=== PATIENT | female | born 1970 | race African-American/Black ===

== ENCOUNTER 2019-08-06 14:24 | Emergency (ER) | payer SELFPAY ==
[~2019-08-06] VITALS: Ht 170.2 cm; Wt 102.2 kg
[2019-08-06 14:42] VITALS: BP 164/95
--- NOTE | 2019-08-06 15:56 | RAD ---
CHEST PA LATERAL History: Fever, cough for a week Comparison: None. Findings: 2 views of the chest are submitted. There is no infiltrate, pneumothorax, or effusion. Pericardial cardiac silhouette is within normal limits in size. There is evidence of old granulomatous disease. Impression: 1. No significant infiltrate is identified by radiograph. Electronically signed by: Dario Bernard MD (08/06/2019 3:54 PM) [id number]
[2019-08-06] MEDS ORDERED: ALBU2.5V8 IH (16:19)
[2019-08-06] MEDS ORDERED: BENZ100C PO (16:19)
[2019-08-06] MEDS ORDERED: PRED50TA PO (16:19)
--- NOTE | 2019-08-06 16:19 | PHYS DOC ---
Past Medical History Past Medical History: No Pertinent History Past Surgical History: No Surgical History Alcohol Use: None Adult General Chief Complaint Chief Complaint: FLU SYMPTOM HPI HPI Patient is a 49 year old female who presents to the ED today complaining of a productive cough, sore throat and nasal congestion for week. Review of Systems Review of Systems Constitutional: Denies fever or chills [] Eyes: Denies change in visual acuity, redness, or eye pain [] HENT: Reports nasal congestion and sore throat [] Respiratory: Reports cough, denies shortness of breath [] Cardiovascular: No additional information not addressed in HPI [] GI: Denies abdominal pain, nausea, vomiting, bloody stools or diarrhea [] : Denies dysuria or hematuria [] Musculoskeletal: Denies back pain or joint pain [] Integument: Denies rash or skin lesions [] Neurologic: Denies headache, focal weakness or sensory changes [] All other systems were reviewed and found to be within normal limits, except as documented in this note. Allergies Allergies Allergies Coded Allergies Type Severity Reaction Last Updated Verified No Known Drug Allergies 08/06/19 No Physical Exam Physical Exam Constitutional: Well developed, well nourished, no acute distress, non-toxic appearance. [] HENT: Normocephalic, atraumatic, bilateral external ears normal, oropharynx moist, no oral exudates, nose normal. [] Eyes: PERRLA, EOMI, conjunctiva normal, no discharge. [] Neck: Normal range of motion, no tenderness, supple, no stridor. [] Cardiovascular:Heart rate regular rhythm, no murmur [] Lungs & Thorax: Bilateral breath sounds clear to auscultation [] Abdomen: Bowel sounds normal, soft, no tenderness, no masses, no pulsatile masses. [] Skin: Warm, dry, no erythema, no rash. [] Back: No tenderness, no CVA tenderness. [] Extremities: No tenderness, no cyanosis, no clubbing, ROM intact, no edema. [] Neurologic: Alert and oriented X 3, normal motor function, normal sensory function, no focal deficits noted. [] Psychologic: Affect normal, judgement normal, mood normal. [] Current Patient Data Vital Signs Vital Signs Date Time Temp Pulse Resp B/P (MAP) Pulse Ox O2 Delivery O2 Flow Rate FiO2 08/06/19 14:42 97.8 94 16 164/95 (118) 94 Room Air 97.8 EKG EKG [] Radiology/Procedures Radiology/Procedures []PROCEDURE: CHEST PA & LATERAL CHEST PA LATERAL History: Fever, cough for a week Comparison: None. Findings: 2 views of the chest are submitted. There is no infiltrate, pneumothorax, or effusion. Pericardial cardiac silhouette is within normal limits in size. There is evidence of old granulomatous disease. Impression: 1. No significant infiltrate is identified by radiograph. Electronically signed by: Drea Hdez MD (08/06/2019 3:54 PM) [id number] DICTATED and SIGNED BY: DREA HDEZ MD DATE: 08/06/19 1554 Course & Med Decision Making Course & Med Decision Making Pertinent Labs and Imaging studies reviewed. (See chart for details) This is a 49-year-old female patient presenting to the ED today with cough congestion and sore throat. Chest x-rays negative. Discharged with prednisone, Tessalon Perles and albuterol inhaler. Follow-up with PCP in 1-2 weeks. Dragon Disclaimer Dragon Disclaimer This electronic medical record was generated, in whole or in part, using a voice recognition dictation system. Departure Departure Impression: Primary Impression: Cough Additional Impression: URI (upper respiratory infection) Disposition: HOME, SELF-CARE Condition: STABLE Referrals: NO PCP (PCP) follow up in 1-2 weeks with your doctor Patient Instructions: Cough, Adult, [id number], Upper Respiratory Infection, Adult, [id number] Additional Instructions: You were seen in the emergency room, your chest x-ray is negative. Take the prescribed medications as ordered. Follow-up with your doctor in 1-2 weeks Scripts Albuterol Sulfate (PROAIR HFA INHALER) 8.5 Gm Hfa.aer.ad 2 PUFF IH PRN Q4-6HRS PRN for wheezing for 21 Days, #1 INHALER 0 Refills Prov: MUTUNGA,DES [employer] 08/06/19 Benzonatate (TESSALON PERLE) 100 Mg Capsule 1 CAP PO TID, #21 CAP Prov: MUTUNGA,DES [employer] 08/06/19 Prednisone (PREDNISONE) 50 Mg Tablet 1 TAB PO DAILY, #5 TAB Prov: MUTUNGA,DES [employer] 1/31/20 Problem Qualifiers Additional Impression: URI (upper respiratory infection) URI type: unspecified URI Qualified Codes: J06.9 - Acute upper respiratory infection, unspecified DES ESCOBEDO APRN Aug 06, 2019 16:19
== END 2019-08-06 16:23 | disposition home or self-care (01) ==
LOC: ER 14:24
DX: J06.9 Acute upper respiratory infection, unspecified (principal); R05 Cough
CPT/HCPCS: 71046; 99284